=== PATIENT | female | born 1980 | race Caucasian/White ===

== ENCOUNTER 2016-10-04 00:04 | Emergency (ER) | payer SELFPAY ==
[2016-10-04] MEDS ORDERED: CHLORHEXIDINE GLUCONATE 4 % 15 ML UD TOP ONE (00:13)
[2016-10-04] MEDS ORDERED: HYDROcodone 7.5MG/APAP 325MG 1 EA TAB PO ONE (00:19)
[2016-10-04 00:22] VITALS: TEMP 99.8; O2SAT 99
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
[2016-10-04] MEDS ORDERED: LIDOCAINE 1% 10 ML VIAL INJ ONE (00:38)
--- NOTE | 2016-10-04 00:53 | RAD ---
EXAM: Two view(s) of the right forearm. INDICATION: Pain. COMPARISON: None. FINDINGS: No acute fracture or dislocation. There is subcutaneous emphysema with soft tissue swelling along the ulnar aspect of the forearm. There is no radiopaque foreign body. IMPRESSION: 1. No acute fracture. Electronically signed by: Rafa Teran MD 10/04/2016 12:52 AM CDT Workstation: [id number]
[2016-10-04] MEDS ORDERED: NEOMYCIN-BACITRACIN-POLYMYXIN 0.9 GM UD TOP ONE ×2 (00:58→01:03)
[2016-10-04] MEDS ORDERED: TETANUS-DIPHTHERIA TOXOIDS (TD 1 EA SYG IM ONE (01:05)
[2016-10-04] MEDS ORDERED: TETANUS,DIPHTHERIA,PERTUSSIS 1 EA SYG IM ONE (01:08)
[2016-10-04 01:30] VITALS: BP 115/72
== END 2016-10-04 01:31 | disposition home or self-care (01) ==
LOC: ER 00:04
DX: S51.811A Laceration without foreign body of right forearm, initial encounter (principal); Z87.891 Personal history of nicotine dependence; W45.8XXA Other foreign body or object entering through skin, initial encounter; W27.2XXA Contact with scissors, initial encounter

== ENCOUNTER → 2017-04-04 | Outpatient (CLI) | payer SELFPAY | END | disposition home or self-care (01) | LOC: LAB.O 10:20 | PROVIDERS: ATTEND Nurse Practitioner Family | DX: R11.2 Nausea with vomiting, unspecified (principal); E86.0 Dehydration ==

== ENCOUNTER → 2017-04-04 | Outpatient (CLI) | payer OTHER ==
--- NOTE | 2017-04-05 07:13 | RAD ---
EXAM DESCRIPTION: Abdomen Series CLINICAL HISTORY: NAUSEA COMPARISON: None FINDINGS: Single frontal view the thorax with 2 views of the abdomen pelvis. No acute cardiac pulmonary disease process is demonstrated within the thorax. Normal bowel gas pattern is noted. No organomegaly or pathologic calcification is demonstrated. Scoliosis of the thoracolumbar spine is noted. Ventriculoperitoneal shunt tubing is seen with no shunt tubing discontinuity. IMPRESSION: No radiographic evidence for acute disease. Electronically signed by: Solis Carlos MD 04/05/2017 7:12 AM STRETCHER DRIER OPERATOR
== END | disposition home or self-care (01) ==
LOC: LAB.O 10:14
PROVIDERS: ATTEND Nurse Practitioner Family
DX: R11.2 Nausea with vomiting, unspecified (principal)

== ENCOUNTER → 2019-03-05 | Outpatient (CLI) | payer SELFPAY ==
--- NOTE | 2019-03-06 10:26 | US ---
EXAM DESCRIPTION: Soft Tissue,Extremity: ULTRASOUND. CLINICAL HISTORY: 38 years Female SUBCUTANEOUS CYST. Patient has tried to aspirate at home. COMPARISON: None Available. TECHNIQUE: Transcutaneous scanning: Allison-scale and Doppler modes. FINDINGS: Ill-defined complex mass subcutaneous medial proximal right thigh. Minimally vascular. Central mostly hypoechoic but no fluid compartment. Palpable. Measurements 10.9 x 9.1 x 4.8 cm. No distinct cyst or dominant solid mass. No large calcifications. IMPRESSION: Subcutaneous gland, possibly sweat or hair follicle, appears complex, most likely early infection versus inflammation. Electronically signed by: Andrei Pettit MD 03/06/2019 10:24 AM GARDEN WORKER
== END ==
LOC: US 13:13
PROVIDERS: ATTEND Nurse Practitioner Family
DX: L72.3 Sebaceous cyst (principal)